=== PATIENT | male | born 1970 | race Caucasian/White ===

== ENCOUNTER 2017-01-04 22:12 | Emergency (ER) | payer BC, OTHER ==
[~2017-01-04] VITALS: Ht 180.3 cm; Wt 83.9 kg
[2017-01-04 22:51] LABS: Basophils # (auto) 0 uL; Basophils % (auto) 0.1 % (0.0-2.0); Eosinophils # (auto) 0 uL; Eosinophils % (auto) 0.2 % (0.0-7.0); Hematocrit 48.3 % (41.0-53.0); Hemoglobin 16.4 g/dL (13.5-17.5); Lymphocytes # (auto) 0.5 uL; Lymphocytes % (auto) 5.3 % (10.0-50.0); Mean Corpuscular Hemoglobin 30.1 pg (28.0-32.0); Mean Corpuscular Volume 88.4 fL (80.0-100.0); Mean Platelet Volume 8.7 fL (7.4-10.4); Monocytes # (auto) 0.3 uL; Monocytes % (auto) 2.9 % (0.0-12.0); Neutrophils # (auto) 8.2 uL; Neutrophils % (auto) 91.5 % (37.0-80.0); Platelet Count (auto) 267 10^3/uL (140-450); White Blood Cell 8.9 10^3/uL (4.4-10.8)
[2017-01-04 23:12] LABS: Albumin 3.8 g/dL (3.4-5.0); BUN/Creatinine Ratio 11.9; Calcium 9.2 mg/dL (8.5-10.1)
[2017-01-04 23:14] LABS: Bilirubin, Total 0.9 mg/dL (0.2-1.0)
[2017-01-04] MEDS ORDERED: ACETAMINOPHEN 325 MG TAB PO ONE (23:59)
[2017-01-05] MEDS ORDERED: ACETAMINOPHEN 325 MG TAB PO ONE (00:15)
[2017-01-05] MEDS ORDERED: SODIUM CHLORIDE 0.9% 1,000 ML IV ONE (02:16)
[2017-01-05] MEDS ORDERED: ONDANSETRON HCL 4 MG/2 ML VIAL IV ONE (02:30)
[2017-01-05 03:20] VITALS: BP 117/68
== END 2017-01-05 04:35 | disposition home or self-care (01) ==
LOC: ER 22:15
DX: K52.9 Noninfective gastroenteritis and colitis, unspecified (principal); E78.5 Hyperlipidemia, unspecified
CPT/HCPCS: 36415; 74176; 80053; 85025; 96361; 96374; 99285; J2405; J7030